=== PATIENT | male | born 1955 | race Caucasian/White ===

== ENCOUNTER 2019-07-12 18:34 | Emergency (ER) | payer BC, MEDICARE, OTHER, SELFPAY ==
[2019-07-12 18:38] VITALS: BP 137/83; PULSE 86; RESP 15; TEMP 37; O2SAT 99; BMI 26.1
--- NOTE | 2019-07-12 20:26 | PC.NURSE ---
Has varicose vein on back of left knee. increasing in pain. Firm to touch, area reddened.
--- NOTE | 2019-07-12 21:19 | ED.EXTPRO ---
HPI - Extremity Problem General Chief complaint: Extremity Problem,Nontraumatic Stated complaint: lt leg pain Time Seen by Provider: 07/12/19 21:19 Source: patient Mode of arrival: Ambulatory Limitations: no limitations History of Present Illness HPI Narrative: The patient has pain and swelling in the left popliteal fossa for about 2 weeks. He has no associated calf tenderness, lower extremity swelling, chest pain or dyspnea. He has no history of DVT. He has varicose veins. He has no cardiovascular or respiratory medical history. He is in general good health. He does take prophylactic aspirin. He does recognize he has pain in a varicose vein. He has had no injury to the site. Related Data Home Medications Medication Instructions Recorded Confirmed MULTIVITAMIN (Multivitamin 1 cap PO EVERY DAY #0 10/03/06 -) [CHONDROITIN] BID #0 10/03/06 omeprazole 20 mg PO QDAY #0 tab 08/02/16 Previous Rx's Medication Instructions Recorded amoxicillin-pot clavulanate 875 mg PO BID #20 tab 08/02/16 [Augmentin] Allergies Allergy/AdvReac Type Severity Reaction Status Date / Time Sulfa (Sulfonamide Allergy Mild Verified 07/12/19 18:42 Antibiotics) [SULFA (SULFONAMIDE ANTIBIOTICS)] sulfamethoxazole Allergy Mild Verified 07/12/19 18:42 [From ] trimethoprim [From ] Allergy Mild Verified 07/12/19 18:42 Review of Systems Constitutional Constitutional: Denies chills, Denies fever(s) and Denies weakness Cardiovascular Cardiovascular: Denies chest pain, Denies irregular heart rhythm, Denies dyspnea and Denies orthopnea Respiratory Respiratory: Denies cough, Denies dyspnea and Denies wheezing Comments: No hemoptysis Gastrointestinal Gastrointestinal: Denies abdominal pain and Denies nausea Musculoskeletal Musculoskeletal: Denies back pain, Denies muscle weakness and Denies numbness Comments: Left leg pain as described in HPI. The lower extremity edema. Integumentary/Breasts Skin/Breast: Denies erythema, Denies rash and Denies wounds Neurologic Neurologic: Denies numbness and Denies weakness Allergic/Immunologic Allergic/Immunologic: Denies wheezing [facility] Medical History (Updated 07/12/19 @ 21:35 by Faizan Kaminski MD) Dyspepsia (Acute) Varicose veins of bilateral lower extremities with pain (Acute) Surgical History (Updated 07/12/19 @ 21:31 by Faizan Kaminski MD) No pertinent past surgical history (Acute) Social History Smoking Status: Unknown if ever smoked Social History Smoking Status: Unknown if ever smoked Exam Initial Vital Signs Initial Vital Signs: Vital Signs Temperature 98.6 F 07/12/19 18:38 Pulse Rate 86 07/12/19 18:38 Respiratory Rate 15 07/12/19 18:38 Blood Pressure 137/83 07/12/19 18:38 Pulse Oximetry 99 07/12/19 18:38 Const General: cooperative and well developed Nutritional Appearance: well nourished Orientation: alert, awake and oriented x3 Resp Effort & Inspection: normal respiratory effort and able to speak in complete sentences Auscultation: clear to auscultation bilaterally, no rales, no rhonchi and no wheezes Cardio Rate: regular rate Rhythm: regular rhythm Heart Sounds: no click, no gallops, no murmurs and no rubs Pulses: normal peripheral pulses GI Inspection: normal to inspection Palpation: soft and No tender Skin General: no rashes or lesions noted, No jaundice and No petechiae Neuro General: alert, oriented x3, gait normal and no focal motor deficits Speech: speech normal Extrem General: full ROM, no clubbing, cyanosis or edema, no pedal edema and no calf tenderness Other: Diffuse varicose veins of lower extremities. Superficial thrombosis of a varicose vein in the left popliteal fossa. No calf tenderness or lower extremity edema. Normal peripheral pulses. Psych Appearance: well kempt Mental Status: mental status grossly normal Attitude: cooperative Thought Content: normal and suicidality Judgment: judgment good Course Vital Signs Vital signs: Vital Signs - 8 hr 07/12/19 18:38 Temperature 98.6 F Pulse Rate 86 Respiratory Rate 15 Blood Pressure 137/83 Pulse Oximetry 99 Discharge Plan Departure Patient Disposition: Home Clinical Impression: Acute superficial venous thrombosis of left lower extremity Varicose veins of both lower extremities Qualifiers: Varicose vein complication: inflammation Qualified Code(s): I83.11 - Varicose veins of right lower extremity with inflammation Instructions: DI for Varicose Veins Activity Restrictions/Additional Instructions: Apply warm compresses to the left posterior knee at the area of tenderness 2 times daily. The pain should eventually resolved. Take Tylenol as needed for pain. If you developed spreading redness or tenderness the site at the site rechecked, return the ER if necessary. Prescriptions: No Action MULTIVITAMIN (Multivitamin -) 1 cap PO EVERY DAY Qty: 0 RF: 0 [CHONDROITIN] BID Qty: 0 RF: 0 omeprazole 20 MG tablet,delayed release (DR/EC) 20 mg PO QDAY Qty: 0 RF: 0 amoxicillin-pot clavulanate [Augmentin] 875 MG/125 MG tablet 875 mg PO BID Qty: 20 RF: 0 Referrals: Dennis Swift MD [Primary Care Provider] -
[2019-07-12 21:44] VITALS: BP 142/78; PULSE 75; RESP 16; O2SAT 98
== END 2019-07-12 21:46 | disposition home or self-care (01) ==
PROVIDERS: Emergency Provider Emergency Medicine; Family Provider Internal Medicine; PCP Internal Medicine
DX: I83.11 Varicose veins of right lower extremity with inflammation (principal)
CPT/HCPCS: 99282

== ENCOUNTER 2022-08-13 23:02 | Emergency (ER) | payer MEDICARE, OTHER, SELFPAY ==
[2022-08-14 00:33] VITALS: BP 143/85; PULSE 100; RESP 18; TEMP 36.6; O2SAT 98; BMI 25.8
[2022-08-14 01:07] LABS: COVID19 -Nasal RAPID POSITIVE (Negative)
--- NOTE | 2022-08-14 03:13 | ED.URI ---
HPI - URI/Sore Throat General Chief Complaint: Upper Respiratory Symptoms Stated Complaint: check for covid, fever Time Seen by Provider: 08/14/22 03:07 Source: patient Mode of arrival: Ambulatory History of Present Illness HPI Narrative: Patient has been traveling. 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 Complains since yesterday fever body aches headache runny nose and dry cough. Patient is COVID vaccinated. No nausea or vomiting. No dyspnea. No loss of taste or smell. Related Data Home Medications Medication Instructions Recorded Confirmed MULTIVITAMIN (Multivitamin 1 cap PO EVERY DAY ##0 10/03/06 -) [CHONDROITIN] BID ##0 10/03/06 omeprazole 20 mg tablet,delayed 20 mg PO QDAY #0 tabs 08/02/16 release Previous Rx's Medication Instructions Recorded amoxicillin 875 mg-potassium 875 mg PO BID #20 tabs 08/02/16 clavulanate 125 mg tablet (Augmentin) Allergies Allergy/AdvReac Type Severity Reaction Status Date / Time Sulfa (Sulfonamide Allergy Mild Verified 08/14/22 00:32 Antibiotics) [SULFA (SULFONAMIDE ANTIBIOTICS)] sulfamethoxazole Allergy Mild Verified 08/14/22 00:32 [From ] trimethoprim [From ] Allergy Mild Verified 08/14/22 00:32 Review of Systems Review of Systems Narrative: GENERAL: Denies chills, fatigue, malaise, positive for fever, sweats. HEENT: Denies sinus pain, ear pain, sore throat RESPIRATORY: Denies dyspnea, positive for cough CARDIOVASCULAR: Denies chest pain, palpitations GASTROINTESTINAL: Denies nausea, vomiting, abdominal pain : Denies dysuria, frequency, hematuria MUSCULOSKELETAL: positive for muscle or bony pain SKIN: Denies rash, skin lesions NEUROLOGIC: Denies weakness, numbness, positive headache ROS Unobtainable: All systems reviewed & are unremarkable except as noted in HPI and below Patient History Medical History Dyspepsia Testicular cancer (~1997) Varicose veins of bilateral lower extremities with pain Viral encephalitis (~1998) Surgical History Anesthesia No pertinent past surgical history Pleomorphic adenoma (~1991) Testicular cancer Social History Smoking Status: Unknown if ever smoked Smoking Status: Unknown if ever smoked alcohol intake frequency: holidays/special occasions only Substance Use Type: does not use Exam Narrative Exam Narrative: GENERAL: in no distress, not toxic not dyspneic HEAD: Normocephalic. EYES: Pupils equal round No scleral icterus. ENT: Mucous membranes moist. NECK: Trachea midline. CARDIOVASCULAR: Regular rate and rhythm without murmurs RESPIRATORY: Clear to auscultation. Breath sounds equal bilaterally. No wheezes, rales, or rhonchi. Speaking full sentences NEURO: AOx4. SKIN: Warm and dry PSYCH: Not anxious, is cooperative Initial Vital Signs Initial Vital Signs: Vital Signs Temperature 97.8 F 08/14/22 00:33 Pulse Rate 100 H 08/14/22 00:33 Respiratory Rate 18 08/14/22 00:33 Blood Pressure 143/85 H 08/14/22 00:33 Pulse Oximetry 98 08/14/22 00:33 Oxygen Delivery Method 08/14/22 00:33 Course Course Course Narrative: No new issues during course of stay Orders Ordered: ED Orders 08/14/22 00:34 COVID19 -Nasal RAPID/Pre-Proc Stat Reevaluation(s) Reevaluation #1: Reviewed results with patient. At this time exam and vital signs are reassuring. No blood work or imaging indicated. Return precautions reviewed with him. Work note provided Time: 03:17 Vital Signs Vital signs: Vital Signs - 8 hr 08/14/22 00:33 Temperature 97.8 F Pulse Rate 100 H Respiratory Rate 18 Blood Pressure 143/85 H Pulse Oximetry 98 Oxygen Delivery Method Room Air MDM - URI/Sore Throat Differential Diagnosis Differential diagnosis: Likely upper respiratory infection, sinusitis, viral infection, bronchitis, influenza and other (COVID) Lab Data Labs: Lab Results 08/14/22 Range/Units 00:34 SARS-CoV-2 (PCR) Positive H (Negative) MDM Narrative Medical decision making narrative: Appropriate for discharge home. No laboratory studies or imaging indicated. No hypoxia tachypnea or respiratory distress. Return precautions reviewed with patient. Work note provided. Not toxic at discharge Discharge Plan Departure Patient Disposition: Home Clinical Impression: COVID-19 Activity Restrictions/Additional Instructions: Please quarantine 5 days from 1st day of symptoms. You may return to work next Thursday. Keep well hydrated. Return if worse or for any questions or concerns or if any trouble breathing or short of breath. See family doctor in a week for re-evaluation. May continue ibuprofen or Tylenol for fever or pain. Prescriptions: No Action MULTIVITAMIN (Multivitamin -) 1 cap PO EVERY DAY Qty: 0 [CHONDROITIN] BID Qty: 0 omeprazole 20 MG tablet,delayed release (DR/EC) 20 mg PO QDAY Qty: 0 amoxicillin-pot clavulanate [Augmentin] 875 MG/125 MG tablet 875 mg PO BID Qty: 20 0RF Referrals: Dennis Swift MD [Primary Care Provider] - Stand Alone Forms: Work Release Note Visit Report Forms: Patient Portal/API
== END 2022-08-14 03:23 | disposition home or self-care (01) ==
PROVIDERS: Emergency Provider Emergency Medicine; Family Provider Internal Medicine; PCP Internal Medicine
DX: U07.1 COVID-19 (principal)
CPT/HCPCS: 87635; 99281; 99282; C9803

== ENCOUNTER → 2023-01-15 14:07 | Outpatient (CLI) | payer MEDICARE, OTHER, SELFPAY ==
[2023-01-15 14:23] LABS: Hematocrit 41.4 % (41-53); Hemoglobin 14.1 g/dL (13.5-17.5); Mean Corpuscular Hemoglobin 31.5 PG (26-34); Mean Corpuscular Volume 92.6 fL (80-100); Platelet Count 199 X10^3/uL (150-400); Red Blood Cell Count 4.47 X10^6/uL (4.5-5.9); Red Cell Distribution Width 12.9 % (11.6-14.8); White Blood Cell Count 8.5 X10^3/uL (4.5-11.0)
[2023-01-15 15:12] LABS: Alanine Aminotransferase 34 IU/L (<50); Albumin 4.1 g/dL (3.5-5.0); Albumin Globulin Ratio 1.5 (1.0-2.8); Alkaline Phosphatase 53 U/L (38-126); Aspartate Aminotransferase 34 IU/L (17-59); BUN Creatinine Ratio 18.5 (6-22); Bilirubin Total 0.7 mg/dL (0.2-1.3); Blood Urea Nitrogen 17 mg/dL (9-20); Calcium 9.5 mg/dL (8.4-10.2); Carbon Dioxide 34 mmol/L (22-32); Chloride 103 mmol/L (98-107); Cholesterol 156 mg/dL (140-199); Estimated Glomerular Filt Rate > 60 mL/min (>60); Globulin 2.7 g/dL (1.7-4.1); Glucose 67 mg/dL (80-110); HDL Cholesterol 74 mg/dL (40-60); HEMOLYSIS 18 (0-50); LDL Cholesterol Calculated 67 mg/dL (<100); Potassium 4.2 mmol/L (3.4-5.1); Sodium 139 mmol/L (137-145); Total Protein 6.8 g/dL (6.3-8.2); Triglycerides 74 mg/dL (35-150)
[2023-01-15 15:43] LABS: Prostate Specific Antigen 2.16 ng/mL (0.10-4.00)
[2023-01-15 15:51] LABS: TSH w/ Reflex to FT4 1.05 uIU/mL (0.47-4.68)
== END ==
PROVIDERS: Family Provider Internal Medicine; PCP Internal Medicine; Referring Provider Internal Medicine; Visit Provider Internal Medicine
DX: E78.2 Mixed hyperlipidemia (principal); N40.0 Benign prostatic hyperplasia without lower urinary tract symptoms; K21.9 Gastro-esophageal reflux disease without esophagitis; Z85.47 Personal history of malignant neoplasm of testis
CPT/HCPCS: 36415; 80053; 80061; 84153; 84443; 85027

== ENCOUNTER → 2024-01-14 14:04 | Outpatient (CLI) | payer MEDICARE, OTHER, SELFPAY ==
[2024-01-14 15:12] LABS: HEMOLYSIS < 15 (0-50)
[2024-01-14 15:19] LABS: Aspartate Aminotransferase 36 IU/L (17-59); BUN Creatinine Ratio 19.8 (6-22); Blood Urea Nitrogen 19 mg/dL (9-20); Calcium 9.3 mg/dL (8.4-10.2); Carbon Dioxide 31 mmol/L (22-32); Chloride 104 mmol/L (98-107); Cholesterol 158 mg/dL (140-199); Estimated Glomerular Filt Rate > 60 mL/min (>60); Glucose 88 mg/dL (80-110); HDL Cholesterol 73 mg/dL (40-60); LDL Cholesterol Calculated 70 mg/dL (<100); Potassium 4.1 mmol/L (3.4-5.1); Sodium 138 mmol/L (137-145); Triglycerides 77 mg/dL (35-150)
[2024-01-15 03:32] LABS: Prostate Specific Antigen 2.13 ng/mL (0.10-4.00)
== END ==
LOC: LAB 14:08
PROVIDERS: Family Provider Internal Medicine; PCP Internal Medicine; Referring Provider Internal Medicine; Visit Provider Internal Medicine
DX: E78.2 Mixed hyperlipidemia (principal); N40.1 Benign prostatic hyperplasia with lower urinary tract symptoms; N13.8 Other obstructive and reflux uropathy
CPT/HCPCS: 36415; 80048; 80061; 84153; 84450

== ENCOUNTER 2024-06-10 08:42 | Day surgery (SDC) | payer MEDICARE, OTHER, SELFPAY ==
--- NOTE | 2024-06-10 | PATH_ITS ---
[facility] Accession Number: [id number] No. of containers..01 Tissue . 01 Material submitted: . colon - CECUM POLYP . 01 Diagnosis: CECUM POLYP: Tubular adenoma. [facility] 06/15/20241808 Local . 01 Electronically signed: . Yovani Snell MD, Pathologist NPI- [id number] . 01 Gross description: . Received in formalin with two patient identifiers and cecum, are two raymond soft tissue fragments, 0.2 to 0.4 cm in greatest dimension. Submitted in A1. ([id number]) /MRV 06/15/20241808 Local . 01 Pathologist provided ICD-10: D12.0 . 01 CPT . 255793 Specimen Comment: A courtesy copy of this report has been sent to [phone] Performed at: [address] [facility] [id number] MD Yovani Snell MD Phone: [phone]
[2024-06-10 09:39] VITALS: BP 138/71; PULSE 85; RESP 16; TEMP 36.4; O2SAT 99
[2024-06-10] MEDS: LACTATED RINGERS 1,000 ML 42 ML IV ×2 (09:43→10:52)
--- NOTE | 2024-06-10 10:40 | P.HP_ITS ---
History of Present Illness History of Present Illness Date Patient Seen: 06/10/24 Time Patient Seen: 10:41 Chief complaint: Colonoscopy Narrative: Last scope over 10 years ago. No symptoms or family history for colon cancer [facility] Medical History Stasis dermatitis Venous (peripheral) insufficiency History of colonic polyps History of testicular cancer Erectile dysfunction GERD without esophagitis Mixed hyperlipidemia Viral encephalitis (~1998) Varicose veins of bilateral lower extremities with pain Dyspepsia Surgical History S/P orchiectomy Anesthesia Pleomorphic adenoma (~1991) Social History details: , grown children, dentist, enjoys trombone Smoking Status: Never smoker Meds Home Medications and Allergies Home Medications Medication Instructions Recorded Confirmed Type aspirin 81 mg capsule 81 mg PO DAILY prevent heart attack 01/15/23 06/10/24 History cholecalciferol (vitamin D3) 25 25 mcg PO DAILY 01/15/23 06/10/24 History mcg (1,000 unit) capsule lactobacillus comb no.10 20 20,000 mmu cells PO DAILY 01/15/23 06/10/24 History billion cell capsule (Probiotic) multivitamin 1 tab PO DAILY 01/15/23 06/10/24 History omeprazole 20 mg capsule,delayed 20 mg PO DAILY #90 caps 01/14/24 06/10/24 Rx release rosuvastatin 10 mg tablet [address] Swift's 01/14/24 06/10/24 Rx recommendation #90 tabs sodium,potassium,mag sulfates 17.5 See Rx Instructions PO .COMPLEX 02/29/24 06/10/24 Rx gram-3.13 gram-1.6 gram oral soln #354 mL (Suprep Bowel Prep Kit) Allergies Allergy/AdvReac Type Severity Reaction Status Date / Time Sulfa (Sulfonamide Allergy Mild Verified 06/10/24 09:36 Antibiotics) [SULFA (SULFONAMIDE ANTIBIOTICS)] sulfamethoxazole Allergy Mild Verified 06/10/24 09:36 [From JUNRA] trimethoprim [From JUNRA] Allergy Mild Verified 06/10/24 09:36 Review of Systems Review of Systems ROS: Yes All systems reviewed with the patient and are negative except as otherwise documented Exam Vital Signs (past 8 hours): - 06/10/24 09:39 Temperature 97.5 F L Pulse Rate 85 Respiratory Rate 16 Blood Pressure 138/71 Pulse Oximetry 99 Oxygen Delivery Method Room Air Oxygen Delivery Method Room Air Const General: cooperative, healthy appearing and comfortable Nutritional Appearance: average body habitus [facility] Head: normocephalic and atraumatic Eyes Sclera: sclerae normal Neck Neck: trachea midline Resp Effort & Inspection: normal respiratory effort and able to speak in complete sentences Cardio Rate: regular rate Rhythm: regular rhythm GI Palpation: soft and No tender Skin General: atrophy Neuro General: patient alert, patient awake and patient oriented x3 Cognition: normal cognition Psych Mental Status: mental status grossly normal Judgment: judgment good Assessment & Plan Assessment & Plan narrative: Colon cancer screening using colonoscopy with anesthesia Time-Based Coding :: [TOTAL MINUTES] spent with patient and on the chart (including review of chart, obtaining history, exam, reviewing outside data, placing orders, documenting exam and treatment plan, and counseling patient) on [DATE].
--- NOTE | 2024-06-10 11:11 | PM.OP.COLON ---
Operative Date/Time/Diagnoses Date of procedure: 06/10/24 Time of procedure: 11:11 Pre-op diagnosis: Colon cancer screening Post-op diagnosis: same Procedure & Clinicians Study performed: Colonoscopy with cold forceps polypectomy Same procedure as scheduled: Yes Indications: Colon cancer screening Surgeon: Yuko Montes De Oca Procedure Notes Procedure in detail: Preop diagnosis: Colon cancer screening Postop diagnosis: Same Operative procedure: Colonoscopy with cold forceps polypectomy using anesthesia Surgeon: Denice Montes De Oca MD Findings: To grossly appearing adenomatous polyps in the cecum both less than 3 mm in size. Taken with cold forceps Procedure: Patient placed in a lateral position. Rectal exam performed showing normal tone no masses. Colonoscope was inserted into the rectum and advanced to ileocecal valve with minimal difficulty. Insufflation extraction scope and the above findings. Retroflex was included in the rectum. Impression: 2 small adenomatous appearing polyps in the cecum both taken with cold polypectomy forceps. Severe descending diverticulosis. Plan: Repeat colonoscopy in 5 years. Recommend high-fiber diet with ample hydration Findings: divertiulosis and polyp(s) Specimen(s): other (Two polyps from the cecum both smaller than 3 mm) Complications: none Post-procedure Recommendations: Colonoscopy in 5 years Follow up: as needed Disposition: PACU
[2024-06-10 11:14] VITALS: BP 102/66; PULSE 67; RESP 13; TEMP 36.7; O2SAT 100
[2024-06-10 11:19] VITALS: BP 106/66; PULSE 67; RESP 13; O2SAT 99
[2024-06-10 11:23] VITALS: BP 106/69; PULSE 72; RESP 11; O2SAT 98
[2024-06-10 11:28] VITALS: BP 107/68; PULSE 72; RESP 13; O2SAT 99
== END 2024-06-10 11:46 | disposition home or self-care (01) ==
PROVIDERS: Family Provider Internal Medicine; PCP Internal Medicine; Referring Provider Surgery; Visit Provider Surgery
PROC: 0DJD8ZZ Inspection of Lower Intestinal Tract, Via Natural or Artificial Opening Endoscopic (ICD-10-PCS; CPT 45378; principal; 2024-06-10 10:00)
DX: Z12.11 Encounter for screening for malignant neoplasm of colon (principal); K57.30 Diverticulosis of large intestine without perforation or abscess without bleeding; D12.0 Benign neoplasm of cecum
CPT/HCPCS: 45380

== ENCOUNTER → 2024-11-26 07:32 | Outpatient (CLI) | payer MEDICARE, OTHER, SELFPAY ==
--- NOTE | 2024-11-26 07:38 | DI.RAD.S_ITS ---
PROCEDURE: XR FOOT LT MIN 3V INDICATIONS: Possible foreign body plantar mid left foot TECHNIQUE: 3 views of the foot were acquired. COMPARISON: None. FINDINGS: Bones: No acute displaced fracture or dislocation identified in the foot bones. Small ossicles adjacent to the proximal medial navicular. Soft tissues: Mild plantar enthesopathy. No radiopaque foreign body. IMPRESSION: No radiopaque foreign body in the soft tissues. Mild calcaneal plantar enthesopathy. Dictated by: Van Chery M.D. on 11/26/2024 at 13:50 Approved by: Van Chery M.D. on 11/26/2024 at 13:51
== END ==
PROVIDERS: Family Provider Internal Medicine; PCP Internal Medicine; Referring Provider Nurse Practitioner Family; Visit Provider Nurse Practitioner Family
DX: M77.32 Calcaneal spur, left foot (principal); M79.672 Pain in left foot
CPT/HCPCS: 73630

== ENCOUNTER → 2025-01-16 11:44 | Outpatient (CLI) | payer MEDICARE, OTHER, SELFPAY ==
[2025-01-16 12:39] LABS: Aspartate Aminotransferase 36 IU/L (17-59); BUN Creatinine Ratio 13.3 (6-22); Blood Urea Nitrogen 14 mg/dL (9-20); Calcium 9.9 mg/dL (8.4-10.2); Carbon Dioxide 30 mmol/L (22-32); Chloride 103 mmol/L (98-107); Cholesterol 168 mg/dL (140-199); Estimated Glomerular Filt Rate > 60 mL/min (>60); Glucose 102 mg/dL (80-110); HDL Cholesterol 68 mg/dL (40-60); HEMOLYSIS < 15 (0-50); LDL Cholesterol Calculated 74 mg/dL (<100); Potassium 4.4 mmol/L (3.4-5.1); Sodium 139 mmol/L (137-145); Triglycerides 130 mg/dL (35-150)
[2025-01-16 13:09] LABS: Prostate Specific Antigen 2.41 ng/mL (0.10-4.00)
== END ==
LOC: LAB 11:46
PROVIDERS: Family Provider Internal Medicine; PCP Internal Medicine; Referring Provider Internal Medicine; Visit Provider Internal Medicine
DX: E78.2 Mixed hyperlipidemia (principal); N40.1 Benign prostatic hyperplasia with lower urinary tract symptoms; N13.8 Other obstructive and reflux uropathy
CPT/HCPCS: 36415; 80048; 80061; 84153; 84450